=== PATIENT | male | born 1975 | race Caucasian/White ===

== ENCOUNTER 2024-02-04 04:47 | Inpatient (IN) | payer BC ==
[~2024-02-04] VITALS: Ht 177.8 cm; Wt 121.4 kg
[2024-02-04] MEDS: heparin 25,000 UNIT/250ml bag 250 ML IV PRN (05:29)
[2024-02-04] MEDS: heparin 10,000 units/1 ML INJ IV PRN (05:34)
[2024-02-04 05:44] LABS: APTT 25 SECONDS (22-32); PROTHROMBIN TIME 10.4 SECONDS (9.0-12.0)
[2024-02-04] MEDS: MESSAGE TO NURSING IV ONE (06:07)
[2024-02-04] MEDS ORDERED: nitroGLYCERIN 0.4mg SUBLingual tab SL PRN (06:20)
[2024-02-04] MEDS ORDERED: magnesium Cl slow-release 64mg tablet PO PRN (06:20)
[2024-02-04] MEDS ORDERED: magnesium sulf-water 2g/50mL 50 ML IV PRN (06:20)
[2024-02-04] MEDS ORDERED: morphine 2 MG/ML inj. syringe IV PRN ×2 (06:20)
[2024-02-04] MEDS ORDERED: ondansetron/PF 4mg/2ml inj IV PRN (06:20)
[2024-02-04] MEDS ORDERED: magnesium hydroxide 30ml (MOM) UD suspension PO PRN (06:20)
[2024-02-04] MEDS ORDERED: potassium Cl 20 mEq SR tablet PO PRN ×2 (06:20)
[2024-02-04] MEDS ORDERED: HYDROmorphone/PF 0.2 MG/ML SYRINGE IV PRN (06:20)
[2024-02-04] MEDS ORDERED: magnesium sulf-water 4G/100mL 100 ML IV PRN (06:20)
[2024-02-04] MEDS ORDERED: mag hydrox/Alum hydrox/simeth 30ml oral suspension PO PRN (06:20)
[2024-02-04] MEDS ORDERED: potassium Cl 40MEQ/1/2NS 520ml 520 ML IV PRN (06:20)
[2024-02-04] MEDS ORDERED: HYDROmorphone inj. 0.5 MG/0.5 ML DISP.SYRIN IV PRN (06:20)
[2024-02-04] MEDS ORDERED: acetaminophen 325mg tablet PO PRN (06:20)
[2024-02-04 07:13] LABS: MAGNESIUM 2.2 MG/DL (1.5-2.4)
[2024-02-04] MEDS: docusate sod 100mg capsule PO SCH (08:00)
[2024-02-04] MEDS: K and/or MAG REPLACEMENT MC SCH (08:00)
[2024-02-04 08:38] LABS: ALBUMIN 3.5 G/DL (3.4-5.0); ANION GAP 9 (8-16); BLOOD UREA NITROGEN 8 MG/DL (7-18); BUN/CREATININE RATIO 7.4 (10.0-20.0); CALCIUM 8.5 MG/DL (8.5-10.1); CHLORIDE 108 MMOL/L (99-107); CREATININE 1.08 MG/DL (0.60-1.10); GLUCOSE 153 MG/DL (70-104); POTASSIUM 3.7 MMOL/L (3.5-5.1); SODIUM 140 MMOL/L (135-145); TOTAL CARBON DIOXIDE 22.7 MMOL/L (24-32); eCRCL 86 ML/MIN; eGFR 73 ML/MIN
[2024-02-04 08:49] LABS: BASOPHILS % (AUTO) 0.1 % (0-1); EOSINOPHILS # (AUTO) 0.2 X10'3 (0-0.9); EOSINOPHILS % (AUTO) 1.3 % (0-6); HEMATOCRIT 47.2 % (42.0-52.0); HEMOGLOBIN 15.7 g/dl (14.0-17.9); LYMPHOCYTES # (AUTO) 1.8 X10'3 (1.1-4.8); LYMPHOCYTES % (AUTO) 15.8 % (21-51); MEAN CORPUSCULAR HGB CONC 33.3 g/dL (33.0-36.5); MEAN PLATELET VOLUME 8.1 FL (7.4-10.4); MONOCYTES # (AUTO) 0.7 X10'3 (0-0.9); MONOCYTES % (AUTO) 5.9 % (2-12); NEUTROPHILS # (AUTO) 8.8 X10'3 (1.8-7.7); NEUTROPHILS % (AUTO) 76.9 % (42-75); PLATELET COUNT 245 X10'3 (140-440); RED BLOOD COUNT 5.25 X10'6 (4.70-6.10); RED CELL DISTRIBUTION WIDTH 13.9 % (11.5-14.5); WHITE BLOOD COUNT 11.5 X10'3 (4.5-11.0)
[2024-02-04] MEDS: pantoprazole 40mg Tablet.DR PO SCH (09:06)
[2024-02-04] MEDS: normal saline 1000ml 1,000 ML IV SCH (09:07)
[2024-02-04 09:21] LABS: PRO BRAIN NATRIURETIC PEPTIDE 39 PG/ML (0-125)
[2024-02-04 11:00] VITALS: BP 137/92; PULSE 93; RESP 14; TEMP 98.3; O2SAT 97
[2024-02-04] MEDS: acetaminophen 325mg tablet PO PRN (11:20)
[2024-02-04] MEDS ORDERED: PERFLUTREN PROTEIN-A MICROSPHR (Optison) 0.22 MG/ML 3ML VIAL IV ONE (12:55)
[2024-02-04 13:23] LABS: CHOL/HDL RATIO 2.8 (0.00-4.99); CHOLESTEROL 153 MG/DL (0-200); HDL CHOLESTEROL 54 MG/DL (35-60); LDL CHOLESTEROL 81 MG/DL (50-100); TRIGLYCERIDES 96 MG/DL (20-135)
[2024-02-04] MEDS ORDERED: FAMO-129 PO (16:06)
[2024-02-04] MEDS ORDERED: LOSA25TA41 PO (16:06)
[2024-02-04] MEDS ORDERED: ROSU10TA72 PO (16:06)
[2024-02-04 18:00] VITALS: BP 134/88; PULSE 84; RESP 16; TEMP 97.8; O2SAT 99
[2024-02-04 19:11] VITALS: BP 135/88; PULSE 98; RESP 18; TEMP 98; O2SAT 98
[2024-02-04 20:00] VITALS: RESP 18; O2SAT 96
[2024-02-05 02:00] VITALS: BP 136/86; PULSE 94; RESP 16; O2SAT 98
[2024-02-05 07:00] VITALS: BP 126/86; PULSE 82; RESP 14; TEMP 98.3; O2SAT 96
[2024-02-05] MEDS ORDERED: NITR0.4T51 SL ×2 (07:56→12:26)
[2024-02-05 08:00] VITALS: RESP 18; O2SAT 96
[2024-02-05 08:10] LABS: BASOPHILS % (AUTO) 0.3 % (0-1); EOSINOPHILS # (AUTO) 0.2 X10'3 (0-0.9); EOSINOPHILS % (AUTO) 2.2 % (0-6); HEMATOCRIT 45.4 % (42.0-52.0); HEMOGLOBIN 15.6 g/dl (14.0-17.9); LYMPHOCYTES # (AUTO) 1.6 X10'3 (1.1-4.8); LYMPHOCYTES % (AUTO) 20.8 % (21-51); MEAN CORPUSCULAR HEMOGLOBIN 30.7 PG (27.0-31.0); MEAN CORPUSCULAR HGB CONC 34.3 g/dL (33.0-36.5); MEAN CORPUSCULAR VOLUME 89.5 FL (78-98); MEAN PLATELET VOLUME 7.3 FL (7.4-10.4); MONOCYTES # (AUTO) 0.6 X10'3 (0-0.9); MONOCYTES % (AUTO) 7.3 % (2-12); NEUTROPHILS # (AUTO) 5.3 X10'3 (1.8-7.7); NEUTROPHILS % (AUTO) 69.4 % (42-75); PLATELET COUNT 216 X10'3 (140-440); RED BLOOD COUNT 5.08 X10'6 (4.70-6.10); RED CELL DISTRIBUTION WIDTH 13.8 % (11.5-14.5); WHITE BLOOD COUNT 7.6 X10'3 (4.5-11.0)
[2024-02-05 08:40] LABS: ALANINE AMINOTRANSFERASE 42 U/L (12-78); ALBUMIN 3.5 G/DL (3.4-5.0); ALKALINE PHOSPHATASE 71 IU/L (46-116); ANION GAP 6 (8-16); ASPARTATE AMINO TRANSFERASE 19 U/L (10-37); BILIRUBIN,TOTAL 0.8 MG/DL (0.1-1.0); BLOOD UREA NITROGEN 9 MG/DL (7-18); BUN/CREATININE RATIO 9.5 (10.0-20.0); CALCIUM 8.6 MG/DL (8.5-10.1); CHLORIDE 108 MMOL/L (99-107); CHOL/HDL RATIO 3.1 (0.00-4.99); CHOLESTEROL 157 MG/DL (0-200); CREATININE 0.95 MG/DL (0.60-1.10); GLUCOSE 121 MG/DL (70-104); HDL CHOLESTEROL 50 MG/DL (35-60); LDL CHOLESTEROL 87 MG/DL (50-100); MAGNESIUM 2.2 MG/DL (1.5-2.4); POTASSIUM 4.2 MMOL/L (3.5-5.1); SODIUM 138 MMOL/L (135-145); TOTAL CARBON DIOXIDE 23.7 MMOL/L (24-32); TOTAL PROTEIN 6.9 G/DL (6.4-8.2); TRIGLYCERIDES 106 MG/DL (20-135); eCRCL 98 ML/MIN; eGFR 85 ML/MIN
[2024-02-05 11:00] VITALS: BP 143/92; PULSE 97; RESP 10; TEMP 97.4; O2SAT 98
[2024-02-05] MEDS ORDERED: METO-539 PO (11:59)
[2024-02-05] MEDS ORDERED: metoprolol succinate 25mg (24-HOUR) SR. Tablet PO SCH (12:00)
== END 2024-02-05 12:53 | disposition home or self-care (01) | DRG 282 ==
LOC: ER 04:49 → ED HOLD 05:17 → PCU 3S 10:30
PROVIDERS: ADMIT Internal Medicine Pulmonary Disease; ATTEND Internal Medicine
DX: I21.4 Non-ST elevation (NSTEMI) myocardial infarction (principal); K21.9 Gastro-esophageal reflux disease without esophagitis; I10 Essential (primary) hypertension; E66.9 Obesity, unspecified; I49.9 Cardiac arrhythmia, unspecified; R73.9 Hyperglycemia, unspecified; E78.5 Hyperlipidemia, unspecified; Z68.38 Body mass index [BMI] 38.0-38.9, adult; Z88.0 Allergy status to penicillin; Z88.8 Allergy status to other drugs, medicaments and biological substances; Z91.148 Patient's other noncompliance with medication regimen for other reason
CPT/HCPCS: 36415; 71045; 80048; 80053; 80061; 83036; 83735; 83880; 84484; 85025; 85610; 85730; 93005; 93306; 99285; G0378; J1644; J7030; J7040